=== PATIENT | female | born 1995 | race Caucasian/White ===

== ENCOUNTER 2017-05-07 00:12 | Emergency (ER) | payer SELFPAY | END 2017-05-07 01:48 | disposition home or self-care (01) | LOC: ERS 00:12 | DX: O99.513 Diseases of the respiratory system complicating pregnancy, third trimester (principal); J11.1 Influenza due to unidentified influenza virus with other respiratory manifestations; O99.343 Other mental disorders complicating pregnancy, third trimester; F41.9 Anxiety disorder, unspecified; Z3A.31 31 weeks gestation of pregnancy | CPT/HCPCS: 99283 ==

== ENCOUNTER 2017-05-07 01:53 | Day surgery (SDC) | payer MEDICAID, OTHER, SELFPAY ==
[2017-05-07 02:42] VITALS: BMI 42.2
[2017-05-07 03:36] LABS: FFN Internal QC Analyzer PASS (PASS); FFN Internal QC Cassette PASS (PASS); Fetal Fibronectin Negative (Negative)
--- NOTE | 2017-05-07 08:44 | ER ---
DATE OF SERVICE: 05/07/2017 CHIEF COMPLAINT: Abdominal pain. PRIMARY OB: Jose Godinez M.D. HISTORY OF PRESENT ILLNESS: The patient is a 21-year-old G3, P2 female with an intrauterine pregnanc y at 31 weeks, who was transferred up here after evaluation in the emergency room for flu and abdomin al pain. Flu testing downstairs was negative. The patient reports that she began having abdominal p ain, upper abdominal pain after suddenly feeling nauseous and wanted to throw up and getting out of b ed quickly. She reports prior to this, the patient had a full day with her children and did not feel sick or had pain. Since the sudden rise from bed and severe episode of vomiting, she has had 1 othe r episode and has had some diarrhea. She reports now that she has pain with activity and movement do wn in her lower pelvis. Pain is sharp in her upper abdomen. The patient after some questioning and confirmation does feel like the upper abdominal pain is muscular. Of note, the patient was a [employer] [facility]. The patient reports that she has had a sick contact though not with the same symptoms. In addition, the patient reported a temperature at home over 101 degrees, though here down in the e mergency room and here in labor and delivery has been within normal limits. The patient denies any v aginal bleeding or leakage of fluid or change in discharge. She denies urinary urgency or frequency. She just saw her doctor, Dr. Godinez, earlier in the day and had a urine sample and was evaluated an d had no problems. The patient denies any chest pain or shortness of breath. She denies any rash. She denies hip problems or knee problems. She denies vaginal bleeding, leakage of fluid, urinary urg ency or frequency. PHYSICAL EXAMINATION: VITAL SIGNS: Blood pressure is 108/60, heart rate of 116, respiratory rate of 20, temperature 98.1. GENERAL: She appears to be in no acute distress, lying at rest. She is alert and oriented, and coop erative and pleasant to interact with, though is a difficult historian. LUNGS: Clear to auscultation. HEART: Regular rhythm and borderline tachycardic. ABDOMEN: Tender with light and deep palpation in the upper abdomen and in the inguinal region, the p ain in the inguinal region is duplicated with lateral deviation of the uterus. The upper abdominal p ain also duplicated with when asking the patient to sit up engage those muscles. EXTREMITIES: Nontender with minimal edema. Cervical exam per nursing staff is closed, thick and hig h. heart tracing performed for threatened labor. Baseline is noted to be in the 140s with moderat e long-term variability, positive accelerations. The testing was for approximately 1 hour and trigge red by Dr. Miller. Tocometer shows some irritability. A fibronectin was collected and was negative. ASSESSMENT AND PLAN: The patient is a 21-year-old female G3, P2 with an intrauterine at 31 weeks. By history sounds, she has had a light case of food poisoning with the sudden onset of vomit ing and diarrhea that appears not to be as severe. She has only had 2 episodes of vomiting over the previous 6-8 hours since the time of onset and one episode of diarrhea. The patient has no evidence of labor and has a negative fibronectin. The patient has been encouraged to take Tylenol if sh e desires for pain control and is being discharged home with labor precautions.
== END 2017-05-07 03:55 | disposition home or self-care (01) ==
LOC: L&D/OP 01:53
PROVIDERS: ATTEND Obstetrics & Gynecology
DX: O99.89 Other specified diseases and conditions complicating pregnancy, childbirth and the puerperium (principal); R10.10 Upper abdominal pain, unspecified; Z3A.31 31 weeks gestation of pregnancy; Z79.899 Other long term (current) drug therapy
CPT/HCPCS: 82731; 99283

== ENCOUNTER 2017-06-28 09:47 | Inpatient (IN) | payer OTHER ==
--- NOTE | 2017-06-28 10:11 | PDOC.LDHP ---
Labor and Delivery H&P Chief complaint: scheduled section HPI: later enrollment with good criteria at 18wk sono for tracie of 07/04 Current gestational age (weeks): 39 Due date: 07/04/17 Dating criteria: second trimester ultrasound Grav: 3 Para: 2 (prior x 1. not speaking about first delivery ) Current complications: none Abnormal US findings: No Current medications: pre- vitamins Previous surgical history: low tranverse CS Allergies/Adverse Reactions: Allergies Allergy/AdvReac Type Severity Reaction Status Date / Time No Known Allergies Allergy Verified 05/07/17 02:38 Social history: none - Physical Exam Vital signs reviewed and normal: yes General: NAD, resting Heart: RRR Lungs: CTAB Abdomen: NTTP Extremeties: trace edema FHT: category 1 [place] contractions every: none - Vaginal Exam cm dilated: 0 (deffered) - OB Labs Blood type: A RH: positive Antibody Screen: negative HIV: negative RPR: negative HEPSAg: negative 1 hour GCT: negative GBS: negative Urine drug screen: not done - Assessment L&D Assessment: scheduled repeat section - Plan Plan: admit to L&D, to OR for section, informed consent obtained
[2017-06-28 10:20] VITALS: BMI 43.3
[2017-06-28] MEDS ORDERED: Lactated Ringer's 1,000 ML IV SCH ×3 (10:26→15:31)
[2017-06-28] MEDS ORDERED: Bicitra 30 ML UDCUP PO SCH (10:26)
[2017-06-28] MEDS ORDERED: Ondansetron HCl/PF 4 MG/2 ML Vial IVP PRN ×4 (10:26→15:31)
[2017-06-28] MEDS ORDERED: Promethazine HCl 25 MG/ML VIAL IM PRN ×3 (10:26→15:31)
[2017-06-28] MEDS ORDERED: CEFAZOLIN/Water 2 GM/20 ML SYRINGE SLOW IVP SCH (10:26)
[2017-06-28 10:44] LABS: Hemoglobin 10.8 g/dL (12.0-16.0); Mean Corpuscular HGB CONC 32.3 g/dL (32.0-36.0); Mean Corpuscular Hemoglobin 24.4 pg (27.0-31.0); Mean Corpuscular Volume 75.4 fl (81.0-99.0); Mean Platelet Volume 9.3 fL (7.4-10.4); Platelet Count 285 thou/uL (130-400); RBC Distribution Width 16.6 % (11.5-14.5); Red Blood Cell (RBC) Count 4.43 mill/uL (4.20-5.40); White Blood Cell (WBC) Count 8.3 thou/uL (4.8-10.8)
[2017-06-28] MEDS ORDERED: FLU VACC QS2017-18 36 mo. & older 0.5 ML SYRINGE IM ONE (11:00)
[2017-06-28 11:14] LABS: Hep B Surf Ag Non-Reactive S/CO (NonReactive); Syphilis Antibody Nonreactive (Nonreactive); Syphilis Antibody Index 0.05 S/CO (<1.00 Non-Reactive)
[2017-06-28] MEDS ORDERED: Morphine PF 1 MG/ML SYR ONE (11:34)
[2017-06-28] MEDS ORDERED: Lidocaine 1% PF 5 ML VIAL ONE (12:16)
[2017-06-28] MEDS ORDERED: Oxytocin 10 UNITS/ML VIAL ONE (12:17)
[2017-06-28] MEDS ORDERED: PHENYLEPHRINE-NS 100 MCG/ML 10 ML SYRINGE ONE ×3 (12:17→17:02)
[2017-06-28] MEDS ORDERED: Ondansetron HCl/PF 4 MG/2 ML Vial ONE ×2 (12:18→17:02)
[2017-06-28] MEDS ORDERED: Dexamethasone 4 mg/ml Vial ONE (12:18)
[2017-06-28] MEDS ORDERED: Ketorolac Tromethamine 30 MG/ML VIAL ONE ×2 (12:38→17:02)
[2017-06-28] MEDS ORDERED: Promethazine HCl 25 MG SUPP PR PRN (13:10)
[2017-06-28] MEDS ORDERED: Eucerin (Mineral Oil/Petrolatum,White) 30 gm Jar TOP PRN (13:10)
[2017-06-28] MEDS ORDERED: Naloxone HCl 0.4 mg/ml Vial IVP PRN ×2 (13:10)
[2017-06-28] MEDS ORDERED: Meperidine HCl/PF 25 MG/ML VIAL SLOW IVP PRN (13:10)
[2017-06-28] MEDS ORDERED: Naloxone HCl 0.4 mg/ml Vial IV PRN (13:10)
[2017-06-28] MEDS ORDERED: diphenhydrAMINE 50 MG/ML VIAL IVP PRN (13:10)
[2017-06-28] MEDS ORDERED: HYDROmorphone 2 MG/ML VIAL SLOW IVP PRN (13:10)
[2017-06-28] MEDS ORDERED: Ketorolac Tromethamine 30 MG/ML VIAL IVP PRN (13:10)
[2017-06-28] MEDS ORDERED: Communication Order-Pharmacy FS SCH (13:15)
[2017-06-28] MEDS ORDERED: Ketorolac Tromethamine 30 MG/ML VIAL IVP SCH (13:15)
[2017-06-28] MEDS ORDERED: LR / Pitocin 40 units/1000 ml 1,000 ML ONE ×2 (14:39→14:43)
[2017-06-28] MEDS ORDERED: Meperidine HCl/PF 25 MG/ML VIAL ONE (15:09)
[2017-06-28] MEDS ORDERED: Adacel (T-DAP) 0.5 ML VIAL IM ONE (15:31)
[2017-06-28] MEDS ORDERED: Bisacodyl 10 MG SUPP PR PRN (15:31)
[2017-06-28] MEDS ORDERED: Meperidine HCl/PF 25 MG/ML VIAL IM PRN (15:31)
[2017-06-28] MEDS ORDERED: HYDROcodone/Acetaminophen 5/325 mg Tablet PO PRN (15:31)
[2017-06-28] MEDS ORDERED: Simethicone Chewable 80 MG TAB PO PRN (15:31)
[2017-06-28] MEDS ORDERED: Lanolin Ointment 7 GM TUBE TOP PRN (15:31)
[2017-06-28] MEDS ORDERED: LR w/ Pitocin 40 units/1000 ML BAG IV SCH (15:31)
[2017-06-28] MEDS ORDERED: diphenhydrAMINE 25 MG CAP PO PRN (15:31)
[2017-06-28] MEDS ORDERED: Zolpidem Tartrate 5 MG TAB PO PRN (15:31)
[2017-06-28] MEDS ORDERED: Dexamethasone 20 MG/5 ML VIAL ONE (17:02)
[2017-06-28] MEDS: Ibuprofen 800 MG TAB PO SCH ×2 (17:22→21:26)
--- NOTE | 2017-06-28 18:19 | OP ---
DATE OF PROCEDURE: 06/28/2017 PREOPERATIVE DIAGNOSIS: Repeat section at term. Estimated date of delivery 07/04/2017. POSTOPERATIVE DIAGNOSIS: Repeat section at term. Estimated date of delivery 07/04/2017. PROCEDURE PERFORMED: Repeat low transverse section without extension at term. SURGEON: Jose Godinez M.D. MANAGER BIOLOGICS: Stefan Shirley D.O. ANESTHESIA: Subarachnoid block. ESTIMATED BLOOD LOSS: 800 mL. DRAINS: Hollis to gravity, clear urine. MEDICATIONS: Two grams Ancef preincision. DEEP VENOUS THROMBOSIS PROPHYLAXIS: SCDs. SPECIMENS REMOVED: Placenta with 3-vessel cord. OPERATIVE FINDINGS: 1. Vigorous male , cephalic presentation, clear fluid, 8 and 8 Apgars, 3767 grams approximatel y 8 pounds, 5 ounces. 2. Normal appearing uterus, tubes, and ovaries bilaterally. 3. Hemostasis with clear urine counts correct at the end of the procedure. DISPOSITION: Recovery in good condition. DESCRIPTION OF OPERATIVE PROCEDURE: After obtaining proper consent, the patient was taken to the ope rating room where subarachnoid block was achieved without difficulty. Patient was prepped and draped in the usual manner. Previous Pfannenstiel identified, incised sharply and carried down the fascia, extended superior and laterally with curved Griffin scissors. Rectus dissected off sharply superiorly and inferiorly, divided in the midline, entering the peritoneum bluntly, taking care to avoid trauma to the underlying viscera. Ed O retractor placed inside. Vesicouterine peritoneal fold identifi ed. Low-transverse hysterotomy made at this level. Clear fluid noted and the excision was extended superior and laterally with finger fractionation. 's head elevated through the hysterotomy, re sting delivered. Cord clamped and cut and handed off to team in attendance. Usual c ord blood samples obtained. Placenta removed manually. Uterus left in situ. Hysterotomy noted to b e without extension, closed using a running locking #1 Monocryl suture x1 layer. Gutters were irriga sunil out bilaterally. Good hemostasis was noted. Ed 0 retractor was removed. Rectus was inspect ed. Small area of bleeding along the rectus was rendered hemostatic with a [id number] of Monocr yl suture. Rest of the rectus was noted to be dry and reapproximated using a running continuous 0 PD S suture x2. Subcutaneous tissue irrigated and rendered hemostatic with Bovie cautery, reapproximate d using a 2-0 plain gut. Skin reapproximated using a 4-0 Monocryl and Dermabond. The patient was ta jessica to recovery room in good condition.
[2017-06-28] MEDS: Docusate Calcium (SURFAK) 240 MG CAP PO SCH (21:26)
[2017-06-29 05:31] LABS: Hemoglobin 9.3 g/dL (12.0-16.0); Mean Corpuscular HGB CONC 32.2 g/dL (32.0-36.0); Mean Corpuscular Hemoglobin 24.5 pg (27.0-31.0); Mean Corpuscular Volume 76.3 fl (81.0-99.0); Mean Platelet Volume 9.1 fL (7.4-10.4); Platelet Count 215 thou/uL (130-400); RBC Distribution Width 16.4 % (11.5-14.5); Red Blood Cell (RBC) Count 3.77 mill/uL (4.20-5.40); White Blood Cell (WBC) Count 9.1 thou/uL (4.8-10.8)
[2017-06-29] MEDS: HYDROcodone/Acetaminophen 5/325 mg Tablet PO PRN ×3 (06:18→20:50)
[2017-06-29] MEDS: Ibuprofen 800 MG TAB PO SCH ×3 (06:41→21:54)
--- NOTE | 2017-06-29 07:28 | PDOC.PP ---
Post Progress Note Post Day #: 1 PO intake tolerated: yes Flatus: yes Ambulation: yes Vital Signs (12 hours) Temp Pulse Resp BP Pulse Ox 06/29/17 04:00 98.1 F 69 20 100/54 L 06/29/17 01:30 98.4 F 94 20 116/57 L 06/28/17 19:48 98.6 F 77 20 105/52 L 98 Weight Weight 237 lb - Physical Examination General: NAD Cardiovascular: no m/r/g, RRR Respiratory: clear to auscultation bilaterally Abdominal: + bowel sounds, lochia, no distention, appropriately TTP Extremities: negative homans (B) Skin: CS incision dry & intact, no rash Neurological: no gross focal deficits Psychiatric: A&Ox3, normal affect Result Diagrams: 06/29/17 05:04 Additional Labs: Post Labs Blood Type A POSITIVE 06/28/17 10:35 Hep Bs Antigen Non-Reactive S/CO (NonReactive) 06/28/17 10:35 (1) Status post repeat low transverse section Code(s): Z98.891 - HISTORY OF UTERINE SCAR FROM PREVIOUS SURGERY Status: Acute - Assessment/Plan routine care. home on 06/30 or
[2017-06-29] MEDS: Prenatal Vitamin 1 TAB PO SCH (07:33)
[2017-06-29] MEDS: Docusate Calcium (SURFAK) 240 MG CAP PO SCH ×2 (07:33→20:50)
[2017-06-30] MEDS: Ibuprofen 800 MG TAB PO SCH (06:21)
[2017-06-30] MEDS: HYDROcodone/Acetaminophen 5/325 mg Tablet PO PRN (06:24)
[2017-06-30 09:03] VITALS: BP 120/65; TEMP 98.3
[2017-06-30] MEDS: Prenatal Vitamin 1 TAB PO SCH (09:31)
[2017-06-30] MEDS: Docusate Calcium (SURFAK) 240 MG CAP PO SCH (09:31)
== END 2017-06-30 11:50 | disposition home or self-care (01) | DRG 766 ==
LOC: L&D 09:47 → 3SW 15:48
PROVIDERS: ADMIT Obstetrics & Gynecology; ATTEND Obstetrics & Gynecology
PROC: 10D00Z1 Extraction of Products of Conception, Low, Open Approach (ICD-10-PCS; principal; 2017-06-28)
DX: O34.211 Maternal care for low transverse scar from previous cesarean delivery (principal); Z37.0 Single live birth; Z3A.39 39 weeks gestation of pregnancy
CPT/HCPCS: 36415; 51702; 85027; 86780; 86850; 86900; 86901; 87340; J1100; J1200; J1885; J2001; J2175; J2274; J2405; J2590

== ENCOUNTER 2018-09-02 07:21 | Emergency (ER) | payer SELFPAY ==
[2018-09-02 07:48] LABS: Bilirubin Negative (Negative); Blood, Urine Trace (Negative); Clarity CLOUDY (Clear); Glucose, Urine (Dipstick) Negative (Negative); Leukocyte Small (Negative); Nitrite Negative (Negative); Protein, Urine (Dipstick) Negative (Neg-Trace); Specific Gravity, Urine 1.023 (1.002-1.036); pH, Urine 6.5 (5.0-9.0)
[2018-09-02 07:51] LABS: Bacteria/HPF Rare-Few HPF (None Seen); Hyaline Casts/LPF 4-6 HYALINE CAST LPF (0-3 Hyaline); Pathc Cast-AUWi Flag 0.81 (0-2.49); WBC/HPF 21-50 HPF (0-3)
[2018-09-02 07:58] LABS: Pregnancy Test - Urine (BHCG) Negative (Negative); Pregu Control Background? CLEAR/WHITE (CLR/WHITE); Pregu Control Bar Appear? YES (CONTROL BAR); Specific Gravity 1.023 (1.002-1.036)
[2018-09-02] MEDS ORDERED: Ondansetron ODT 4 MG TAB ONE (08:20)
== END 2018-09-02 08:58 | disposition home or self-care (01) ==
LOC: ERS 07:21
DX: N30.00 Acute cystitis without hematuria (principal)
CPT/HCPCS: 81003; 81015; 81025; 99284; Q0162

== ENCOUNTER 2018-11-19 11:14 | Emergency (ER) | payer SELFPAY ==
[2018-11-19] MEDS ORDERED: Mag-Al 1200 mg/1200 mg/30 ML UDCUP ONE (11:35)
[2018-11-19] MEDS ORDERED: Ondansetron ODT 8 MG TAB ONE (11:35)
[2018-11-19] MEDS ORDERED: Lidocaine Viscous Sol 2% 15 ml UD Cup ONE (11:35)
[2018-11-19 11:46] LABS: #Eosinphils 0.1 thou/uL (0.0-0.7); #Lymphocytes 3.2 thou/uL (1.20-3.40); #Monocytes 0.7 thou/uL (0.11-0.59); #Neutrophils 3.9 thou/uL (1.40-6.50); %Basophils 0.6 % (0.0-1.0); %Eosinophils 0.7 % (0.0-10.0); %Lymphocytes 40.4 % (21.0-51.0); %Monocytes 8.8 % (0.0-10.0); %Neutrophils 49.5 % (42.0-75.0); Hemoglobin 14.7 g/dL (12.0-16.0); Mean Corpuscular HGB CONC 33.5 g/dL (32.0-36.0); Mean Corpuscular Hemoglobin 29.4 pg (27.0-31.0); Mean Corpuscular Volume 87.8 fL (78.0-98.0); Mean Platelet Volume 9.6 fL (7.4-10.4); Platelet Count 222 thou/uL (130-400); RBC Distribution Width 12.1 % (11.5-14.5); White Blood Cell (WBC) Count 7.9 thou/uL (4.8-10.8)
[2018-11-19 11:52] LABS: Bilirubin Negative (Negative); Blood, Urine Trace (Negative); Clarity Clear (Clear); Glucose, Urine (Dipstick) Normal (Negative); Leukocyte Negative Leu/uL (Negative); Nitrite Negative (Negative); Protein, Urine (Dipstick) Negative (Neg-Trace); RBC/HPF 0-3 HPF (0-3); Urobilinogen Normal mg/dL (Less than 2); WBC/HPF 0-3 HPF (0-3)
[2018-11-19 11:55] LABS: Pregnancy Test - Urine (BHCG) Negative (Negative); Pregu Control Background? CLEAR/WHITE (CLR/WHITE); Pregu Control Bar Appear? YES (CONTROL BAR)
[2018-11-19 11:59] LABS: Bacteria/HPF Rare-Few HPF (None Seen)
[2018-11-19 12:09] LABS: ALT (SGPT) 26 U/L (8-55); AST (SGOT) 16 U/L (5-34); Albumin 4.3 g/dL (3.5-5.0); Alkaline Phosphatase 66 U/L (40-150); Anion Gap 11 mmol/L (10-20); BUN (Urea Nitrogen) 11 mg/dL (7.0-18.7); Bilirubin, Total 0.3 mg/dL (0.2-1.2); Calc. Creatinine Clearance 0 mL/min (70-130); Calcium 9.4 mg/dL (7.8-10.44); Carbon Dioxide 23 mmol/L (22-29); Chloride 106 mmol/L (98-107); Estimated GFR-MDRD Greater than 90; Globulin 3.1 g/dL (2.4-3.5); Glucose 88 mg/dL (70-105); Lipase 48 U/L (8-78); Protein, Total 7.4 g/dL (6.0-8.3); Sodium 136 mmol/L (136-145)
[2018-11-19] MEDS ORDERED: Sucralfate 1 GM/10 ML UDCUP ONE (12:20)
== END 2018-11-19 12:30 | disposition home or self-care (01) ==
LOC: ERS 11:14
DX: R10.13 Epigastric pain (principal)
CPT/HCPCS: 36415; 80053; 81003; 81015; 81025; 83690; 85025; 99284

== ENCOUNTER 2022-06-16 17:07 | Emergency (ER) | payer SELFPAY ==
[2022-06-16 18:00] LABS: #Eosinphils 0.1 thou/uL (0.0-0.7); #Lymphocytes 1.2 thou/uL (1.20-3.40); #Monocytes 0.6 thou/uL (0.11-0.59); #Neutrophils 9.7 thou/uL (1.40-6.50); %Basophils 0.3 % (0.0-1.0); %Eosinophils 0.5 % (0.0-10.0); %Lymphocytes 10.3 % (21.0-51.0); %Neutrophils 83.9 % (42.0-75.0); Hemoglobin 15.4 g/dL (12.0-16.0); Mean Corpuscular HGB CONC 33.7 g/dL (32.0-36.0); Mean Corpuscular Hemoglobin 29.8 pg (27.0-31.0); Mean Corpuscular Volume 88.6 fl (78.0-98.0); Platelet Count 232 10x3/uL (130-400); RBC Distribution Width 12.3 % (11.5-14.5); Red Blood Cell (RBC) Count 5.18 mill/uL (4.20-5.40); White Blood Cell (WBC) Count 11.5 10x3/uL (4.8-10.8)
[2022-06-16 18:23] LABS: ALT (SGPT) 31 U/L (8-55); AST (SGOT) 17 U/L (5-34); Albumin 3.6 g/dL (3.5-5.0); Alkaline Phosphatase 50 U/L (40-110); Anion Gap 15 mmol/L (10-20); BUN (Urea Nitrogen) 8 mg/dL (7.0-18.7); Bilirubin, Total 0.5 mg/dL (0.2-1.2); Calc. Creatinine Clearance 0 mL/min (70-130); Calcium 8.8 mg/dL (7.8-10.44); Carbon Dioxide 20 mmol/L (22-29); Chloride 105 mmol/L (98-107); Estimated GFR 119; Globulin 2.9 g/dL (2.4-3.5); Glucose 104 mg/dL (70-105); Lipase 19 U/L (8-78); Potassium 4.2 mmol/L (3.5-5.1); Protein, Total 6.5 g/dL (6.0-8.3); Sodium 136 mmol/L (136-145)
[2022-06-16 19:41] LABS: Bacteria/HPF None Seen HPF (None Seen); Bilirubin Negative (Negative); Blood, Urine Negative (Negative); Clarity Clear (Clear); Glucose, Urine (Dipstick) Normal (Negative); Ketone, Urine Negative (Negative); Leukocyte 25 Leu/uL (Negative); Nitrite Negative (Negative); Protein, Urine (Dipstick) 10 mg/dL (Neg-Trace); RBC/HPF 0-3 HPF (0-3); Specific Gravity, Urine 1.027 (1.002-1.036); Urobilinogen Normal mg/dL (Less than 2); WBC/HPF 0-3 HPF (0-3); pH, Urine 6.5 (5.0-9.0)
[2022-06-16 19:42] LABS: Pregnancy Test - Urine (BHCG) Negative (Negative); Pregu Control Background? CLEAR/WHITE (CLR/WHITE); Pregu Control Bar Appear? YES (CONTROL BAR); Specific Gravity 1.027 (1.002-1.036)
[2022-06-16] MEDS ORDERED: diphenhydrAMINE 50 MG/ML VIAL ONE (19:46)
[2022-06-16] MEDS ORDERED: Metoclopramide HCl 10 MG/2 ML VIAL ONE (19:46)
== END 2022-06-16 23:29 | disposition home or self-care (01) ==
LOC: ERS 17:07
DX: R11.10 Vomiting, unspecified (principal); R10.9 Unspecified abdominal pain; D72.829 Elevated white blood cell count, unspecified
CPT/HCPCS: 36415; 74176; 80053; 81003; 81015; 81025; 83605; 83690; 85025; 87086; 93005; 94760; 96361; 96365; 96375; J1200; J2765